=== PATIENT | female | born 1980 | race Caucasian/White ===

== ENCOUNTER 2022-08-31 10:27 | Outpatient (CLI) | payer MEDICARE, BC ==
[~2022-08-31] VITALS: Ht 167.6 cm; Wt 74.8 kg
[2022-08-31] MEDS ORDERED: PRED10TA23 PO (11:31)
[2022-08-31] MEDS ORDERED: ACET-1008 PO (11:31)
[2022-08-31] MEDS ORDERED: IBUP-1986 PO (11:31)
[2022-08-31] MEDS ORDERED: ADAL40PE SUBCUT (11:31)
[2022-08-31] MEDS ORDERED: METH25VI11 SUBCUT (11:31)
[2022-08-31] MEDS ORDERED: OMEP20CA15 PO (11:31)
[2022-08-31 12:10] LABS: BASOPHILS % (AUTO) 0.4 % (0-1); EOSINOPHILS % (AUTO) 0.1 % (0-6); LYMPHOCYTES # (AUTO) 1.8 X10'3 (1.1-4.8); LYMPHOCYTES % (AUTO) 15.7 % (21-51); MEAN CORPUSCULAR HEMOGLOBIN 30.4 PG (27.0-31.0); MEAN CORPUSCULAR HGB CONC 33.3 g/dL (33.0-36.5); MEAN CORPUSCULAR VOLUME 91.4 FL (78-98); MEAN PLATELET VOLUME 7.6 FL (7.4-10.4); MONOCYTES # (AUTO) 0.4 X10'3 (0-0.9); MONOCYTES % (AUTO) 3.1 % (2-12); NEUTROPHILS # (AUTO) 9.3 X10'3 (1.8-7.7); NEUTROPHILS % (AUTO) 80.7 % (42-75); PRE OP HEMATOCRIT 38.8 % (35.0-45.0); PRE OP HEMOGLOBIN 12.9 g/dL (12.0-16.0); PRE OP PLATELET COUNT 551 X10'3 (140-440); RED BLOOD COUNT 4.25 X10'6 (4.20-5.60); RED CELL DISTRIBUTION WIDTH 14.9 % (11.5-14.5)
[2022-08-31 12:14] LABS: CLARITY,URINE CLEAR (Clear); COLOR,URINE YELLOW (Yellow); GLUCOSE, URINE NEGATIVE (Neg); KETONES,URINE NEGATIVE (Neg); LEUKOCYTE ESTERASE ,URINE NEGATIVE (Neg); NITRITES, URINE NEGATIVE (Neg); OCCULT BLOOD,URINE SMALL (Neg); PROTEIN,URINE 30 mg/dl (Neg); UROBILINOGEN,URINE 0.2 E.U/dL (0.2-1.0)
[2022-08-31 12:16] LABS: UA COLLECTION TYPE CLN CATCH MIDSTREAM
[2022-08-31 12:20] LABS: PRE OP PROTIME 10.9 SECONDS (9.0-12.0)
[2022-08-31 12:22] LABS: BACTERIA,URINE FEW /HPF (Neg); MUCUS STRANDS FEW /LPF (Neg); RBC,URINE 0-2 /HPF (0-2); SQUAMOUS EPITHELIAL CELL,UR MANY /LPF (FEW); WBC,URINE 0-4 /HPF (0-4); YEAST FEW /HPF (NEGATIVE)
[2022-08-31 12:23] LABS: ALBUMIN 3.6 G/DL (3.4-5.0); ALBUMIN/GLOBULIN RATIO 0.6 (1.1-1.5); ALKALINE PHOSPHATASE 75 IU/L (46-116); BLOOD UREA NITROGEN 19 MG/DL (7-18); BUN/CREATININE RATIO 35.2 (10.0-20.0); CALCIUM 9.3 MG/DL (8.5-10.1); CHLORIDE 105 MMOL/L (99-107); CREATININE 0.54 MG/DL (0.40-0.90); PRE OP ALT 13 U/L (30-65); PRE OP ANION GAP 8 (8-16); PRE OP AST 14 U/L (10-37); PRE OP BILIRUB, TOTAL 0.3 MG/DL (0.0-1.0); PRE OP SODIUM 137 MMOL/L (135-145); TOTAL CARBON DIOXIDE 23.6 MMOL/L (24-32); TOTAL PROTEIN 9.6 G/DL (6.4-8.2); eGFR > 90 ML/MIN
[2022-08-31 12:26] LABS: PRE OP GLUCOSE 109 MG/DL (70-104)
[2022-09-02] MEDS ORDERED: METH2.5T PO (12:15)
[2022-09-05] MEDS ORDERED: ringers solution, lacted 1,000 ML IV SCH (05:00)
[2022-09-05] MEDS ORDERED: famotidine 20mg tablet PO ONE (05:30)
== END 2022-08-31 23:59 | disposition home or self-care (01) ==
LOC: LAB 10:27 → UNDOADMIN 11:38 → PAS IN 11:38 → LAB 23:59 → UNDODISIN 23:59 → EDSTATUS 09-05 07:30
PROVIDERS: ATTEND Specialist
DX: Z01.818 Encounter for other preprocedural examination (principal); Z87.891 Personal history of nicotine dependence; M19.011 Primary osteoarthritis, right shoulder; F32.A Depression, unspecified; K21.9 Gastro-esophageal reflux disease without esophagitis
CPT/HCPCS: 36415; 71046; 80053; 81001; 85025; 85610; 85730; 86885; 86900; 86901; 87081; J7120

== ENCOUNTER 2023-03-21 08:04 | Emergency (ER) | payer MEDICARE, BC ==
[~2023-03-21] VITALS: Ht 167.6 cm; Wt 78.0 kg
[~2023-03-21 08:04] MED LIST: ACET-1008 PO; ADAL40PE SUBCUT; IBUP-1986 PO; METH2.5T PO; OMEP20CA15 PO; PRED10TA23 PO
[2023-03-21 10:47] VITALS: BP 144/91; PULSE 85; RESP 18; TEMP 98.1; O2SAT 98
== END 2023-03-21 12:37 | disposition left against medical advice (07) ==
LOC: ER 08:04
DX: M06.9 Rheumatoid arthritis, unspecified (principal); F41.9 Anxiety disorder, unspecified; Z53.29 Procedure and treatment not carried out because of patient's decision for other reasons; Z79.899 Other long term (current) drug therapy
CPT/HCPCS: 99281